=== PATIENT | female | born 1980 | race African-American/Black ===

== ENCOUNTER 2020-04-30 11:01 | Emergency (ER) | payer OTHER, SELFPAY ==
[2020-04-30 11:15] VITALS: BP 153/93; PULSE 80; RESP 20; TEMP 36.6; O2SAT 100
--- NOTE | 2020-04-30 11:28 | ED.GENADULT ---
HPI - General Adult General Chief complaint: Upper Respiratory Infection Stated complaint: sore throat/dry cough Time Seen by Provider: 04/30/20 11:28 Source: patient and RN notes reviewed Mode of arrival: ambulatory Limitations: no limitations History of Present Illness HPI narrative: 39-year-old -[place]ian female presents with complaints of sore throat, hoarseness, and intermittent cough for the past 29 days. Katie reports being diagnosed with COVID-19 on March 31, 2020 and has had a NEGATIVE test since then, started to feel better but continues to have above complaints with increase symptoms over the past 48 hours. Throat lozenges without relief. No high fevers, chills, drooling, neck or throat swelling. Pain is bilateral. Hurts to swallow. Exacerbation factors consist of eating and drinking. No rhinorrhea. Nasal congestion. Intermittent cough without chest congestion. Denies nausea, vomiting, abdominal pain, and diarrhea. Tolerating liquids well. Denies chest pain, dyspnea, difficulty swallowing, jaw pain, dental pain, facial pain, foreign body sensation, and rash. LMP unknown due to Endometrial ablation. Remains active. Some parts of this dictation were generated by voice recognition software and may contain typographical and/or grammatical inaccuracies. Related Data Home Medications Medication Instructions Recorded Confirmed No Home Medications 04/30/20 04/30/20 Allergies Allergy/AdvReac Type Severity Reaction Status Date / Time No Known Allergies Allergy Verified 04/30/20 11:19 Review of Systems Review of Systems: Narrative: CONSTITUTIONAL: Denies fever, chills, sweats. EYES: Denies visual changes, redness, discharge. ENT: Denies rhinorrhea, otalgia. Complains of sore throat, congestion, hoarseness. CARDIOVASCULAR: Denies chest pain, palpitations, edema. RESPIRATORY: Denies dyspnea, wheezing. Complains of intermittent cough. GASTROINTESTINAL: Denies abdominal pain, nausea, vomiting, diarrhea. GENITOURINARY: Denies dysuria, hematuria, abnormal discharge. SKIN: Denies rash or itching. MUSCULOSKELETAL: Denies acute back pain, joint pain, or myalgia. NEUROLOGIC: Denies numbness or focal weakness. PSYCHIATRIC: Denies anxiety or depression. All systems reviewed & are unremarkable except as noted in HPI and below. [facility] Past Medical History Medical History (Updated 04/30/20 @ 19:25 by LIZETH Mendoza) delivery delivered COVID-19 03/31/20 Surgical History Surgical History (Updated 04/30/20 @ 16:39 by LIZETH Mendoza) H/O section X2 History of cholecystectomy History of endometrial ablation Family History Family History Mother Family history of renal failure Father Family history of heart disease in male family member before age 55 Sibling Patient's sister is in good health Patient's brother is in good health Other Diabetes mellitus Family history of cardiovascular disease Hypertension Social History Social History (Updated 04/30/20 @ 16:40 by LIZETH Mendoza) Smoking status: Never smoker Tobacco type: cigarettes Second hand tobacco smoke exposure: No Alcohol intake: never Substance use: never Living arrangements: with family Occupation/Education: occupation Additional occupation/education comments: [employer] Gender identity (if verbalized by the patient): Female Sexual Orientation (if Verbalized by the Patient): Straight or Heterosexual Comments At time of signature, agree with nurse past medical, surgical, social, and family history. There is no relevant family history pertinent to the presenting complaint. Exam Narrative: Exam Narrative: GENERAL: This is a well-nourished, well-developed patient, in no apparent distress. Speaks in full sentences without deficits and ambulates with steady gait without dyspnea. HEAD: normocephalic, at
== END 2020-04-30 11:43 | disposition home or self-care (01) ==
PROVIDERS: Emergency Provider Nurse Practitioner Family
DX: J04.0 Acute laryngitis (principal); J02.0 Streptococcal pharyngitis; Z86.19 Personal history of other infectious and parasitic diseases
CPT/HCPCS: 87880; 99213; G0463

== ENCOUNTER 2020-05-09 14:28 | Emergency (ER) | payer OTHER, SELFPAY ==
--- NOTE | ~2020-05-09 | CT_ITS ---
EXAMINATION: CTA chest PE protocol DATE: 05/09/2020 17:43 INDICATION: Chest pain. Chest heaviness, clamminess. TECHNIQUE: Computed tomography angiography (CTA) of the chest was performed with 200 mL Omnipaque-350 intravenous contrast timed to evaluate the pulmonary arteries. (Repeat imaging was required due to i nsufficient contrast enhancement of the pulmonary arteries on the initial scan.) Coronal maximum inte nsity projection 3D-reconstructions were created by the technologist. Automated exposure control and iterative reconstruction technique were employed. Exam dose: 493.40 mGy-cm total exam DLP. COMPARISON: 05/09/2020 portable AP chest FINDINGS: There is diagnostic contrast enhancement of the pulmonary arteries on the second of the 2 i maging sequences with the second intravenous contrast material administration. There is no evidence o f pulmonary embolism. No thoracic aortic aneurysm or dissection. Normal heart size. No pericardial or pleural effusion. No hilar or mediastinal mass lesion or lymphadenopathy. No pulmonary infiltrate or consolidation or pulmonary mass lesion is detected. Status post cholecystectomy. Small sliding hiatal hernia. Included skeletal structures are unremarkable. IMPRESSION: No evidence of pulmonary aneurysm Reviewed, dictated and finalized at [facility]. Reviewed, dictated and finalized at location A. BLAST EQUIPMENT OPERATOR
--- NOTE | ~2020-05-09 | XR_ITS ---
EXAMINATION: XR chest 1V portable DATE: 05/09/2020 17:10 INDICATION: Chest heaviness and clamminess. COVID in March. TECHNIQUE: frontal view of the chest was obtained. COMPARISON: Chest radiograph dated 01/12/2017 FINDINGS: The lungs remain clear with no focal airspace opacities, pulmonary edema, pleural effusion or pneumot horax. The cardiomediastinal silhouette is normal. Visualized bones and soft tissues are unremarkable . IMPRESSION: 1. Normal chest radiograph. Reviewed, dictated and finalized at location H. IDE POT HARDENER IMPRESSION: 1. Normal chest radiograph.
--- NOTE | 2020-05-09 14:29 | ECG_ITS ---
Measurements Intervals [place] Rate: 91 P: 52 NV: 177 QRS: 41 QRSD: 84 T: 34 QT: 348 QTc: 429 Interpretive Statements SINUS RHYTHM VOLTAGE CRITERIA FOR LVH BASELINE ARTIFACT- V5 BORDERLINE ECG Electronically Signed On 05-09-2020 16:42:30 PUBLIC RELATIONS SENIOR ASSOCIATE by Willy Banks D.O.
[2020-05-09 14:51] VITALS: BP 159/85; PULSE 81; RESP 18; TEMP 37.2; O2SAT 100
[2020-05-09 15:18] LABS: Basophils Absolute Auto 0.1 K/mm3 (0.0-0.1); Basophils Percent Auto 0.8 % (0.2-1.2); Eosinophils Absolute Auto 0.3 K/mm3 (0-0.3); Eosinophils Percent Auto 3.4 % (0-4.4); Hematocrit 36.1 % (37.0-47.0); Hemoglobin 11.7 g/dL (12.0-15.0); Immature Granulocyte Absolute 0.02 K/mm3 (0.00-0.031); Immature Granulocyte Percent A 0.2 % (0-0.5); Lymphocytes Absolute Auto 2.08 K/mm3 (0.9-3.2); Lymphocytes Percent Auto 24.7 % (18.3-44.2); Mean Corpuscular HGB Conc 32.4 g/dl (32-36); Mean Corpuscular Hemoglobin 31.6 pg (26-34); Mean Corpuscular Volume 97.6 fl (80-100); Mean Platelet Volume 9.5 fl (7.4-10.4); Monocytes Absolute Auto 0.7 K/mm3 (0.1-0.6); Monocytes Percent Auto 7.7 % (2.6-8.5); Neutrophils Absolute Auto 5.3 K/mm3 (1.3-6.7); Neutrophils Percent Auto 63.2 % (45.5-73.1); Platelet Count Result 327 k/mm3 (150-375); Red Cell Distribution Width 13.5 % (11.5-14.5); White Blood Count 8.4 K/mm3 (4.5-10.0)
[2020-05-09 15:32] LABS: Anion Gap 11 mmol/L (8-16); Blood Urea Nitrogen 14 mg/dL (7-17); Calcium 9.8 mg/dL (8.4-10.2); Carbon Dioxide 26 mmol/L (22-30); Chloride 104 mmol/L (98-107); Estimated CRCL calculation 96 ml/min; Estimated Glomerular Filt Rate > 60; Glucose 99 mg/dL (65-105); Sodium 141 mmol/L (137-145)
[2020-05-09 15:44] LABS: INR 1.1; Partial Thromboplastin Time 30.3 SECONDS (22.3-36.8); Prothrombin Time 14.7 Seconds (11.1-14.7); Troponin I < 0.012 ng/mL (0.000-0.034)
[2020-05-09 16:42] VITALS: BP 156/90; PULSE 97; RESP 15; O2SAT 99
[2020-05-09 16:47] VITALS: PULSE 86
[2020-05-09] MEDS: ASPIRIN 81 MG CHEWABLE TABLET 324 MG PO (17:00)
--- NOTE | 2020-05-09 17:12 | ED.CHESTPAIN ---
HPI - Chest Pain General Chief Complaint: Chest Pain Stated Complaint: CP Time Seen by Provider: 05/09/20 16:49 History of Present Illness HPI narrative: 39 yo female presents to the ED for chest pain. She has had chest pain since this morning. Feels like pressure. Worse with taking a deep breath. No Sob, cough, fever. She was diagnosed with COVID last month. She was previously treated for HTN, but does not have any BP medications at thsi time. Related Data Home Medications Medication Instructions Recorded Confirmed No Home Medications 04/30/20 04/30/20 Allergies Allergy/AdvReac Type Severity Reaction Status Date / Time No Known Allergies Allergy Verified 04/30/20 11:19 Review of Systems Review of Systems: All systems reviewed & are unremarkable except as noted in HPI and below Constitutional: Constitutional: Denies chills Cardiovascular: Cardiovascular: Reports chest pain Respiratory: Respiratory: Denies cough and Denies dyspnea Gastrointestinal: Gastrointestinal: Denies vomiting Musculoskeletal: Musculoskeletal: Denies back pain Neurologic: Denies numbness and Denies weakness Psychiatric: Psychiatric: Denies anxiety [facility] Past Medical History Medical History delivery delivered COVID-19 03/31/20 Surgical History Surgical History H/O section X2 History of cholecystectomy History of endometrial ablation Family History Family History Mother Family history of renal failure Father Family history of heart disease in male family member before age 55 Sibling Patient's sister is in good health Patient's brother is in good health Other Diabetes mellitus Family history of cardiovascular disease Hypertension Social History Social History Smoking status: Never smoker Tobacco type: cigarettes Second hand tobacco smoke exposure: No Alcohol intake: never Substance use: never 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 Gender identity (if verbalized by the patient): Female Exam Const: General: healthy appearing, no acute distress and alert Orientation/consciousness: patient oriented x3 HENMT: Head: normal to inspection Neck: Neck: normal visual inspection and no lymphadenopathy Chest: Chest palpation & inspection: tenderness Resp: Effort & Inspection: normal respiratory effort Auscultation: clear to auscultation bilaterally, no rales, no rhonchi and no wheezes Cardio: Jugular venous distension: no JVD Rate: regular rate Rhythm: regular rhythm Heart sounds: no murmurs GI: Inspection: non-distended GI Palp: Yes Soft to palpation and No Tenderness to palpation present (GI) Skin: General skin exam: normal color Neuro: General: patient oriented x3 and moves all extremities Speech: normal speech Extrem: General: no edema Psych: Appearance: well kempt Affect: normal affect Course Vital Signs Vital signs: Vital Signs Temperature 37.2 C 05/09/20 14:51 Pulse Rate 81 05/09/20 14:51 Respiratory Rate 18 05/09/20 14:51 Blood Pressure 159/85 H 05/09/20 14:51 Pulse Oximetry 100 05/09/20 14:51 Temperature 37.2 C 05/09/20 14:51 Pulse Rate 98 05/09/20 19:59 Respiratory Rate 18 05/09/20 19:59 Blood Pressure 158/87 H 05/09/20 19:59 Pulse Oximetry 100 05/09/20 19:59 MDM - Chest Pain MDM Narrative Medical decision making narrative: EKG shows LVH, nothing acute. Troponin negative x2. CTA negative for PE or pneumonia. Medical Records Data Attestation: I reviewed the patient's medical records. Lab Data Attestation: I reviewed the patient's lab results. Result diagrams: 05/09/20 15:08 05/09/20 15:08 Labs: Lab Results 05/09/20 05/09/2005/09
[2020-05-09 18:42] LABS: Troponin I < 0.012 ng/mL (0.000-0.034)
[2020-05-09 18:43] VITALS: BP 141/81; PULSE 71; RESP 20; O2SAT 100
[2020-05-09 19:59] VITALS: BP 158/87; PULSE 98; RESP 18; O2SAT 100
== END 2020-05-09 20:00 | disposition home or self-care (01) ==
PROVIDERS: Emergency Provider Emergency Medicine
DX: R07.89 Other chest pain (principal); M79.673 Pain in unspecified foot; Z86.19 Personal history of other infectious and parasitic diseases; R94.31 Abnormal electrocardiogram [ECG] [EKG]
CPT/HCPCS: 36415; 71045; 71275; 80048; 84484; 85025; 85610; 85730; 93005; 99284; A9270; Q9967

== ENCOUNTER 2023-01-13 10:27 | Emergency (ER) | payer OTHER, SELFPAY ==
--- NOTE | ~2023-01-13 | XR_ITS ---
XR chest 2V DATE: 01/13/2023 11:12 INDICATION: Right chest pain radiating to neck since last night TECHNIQUE: PA and lateral chest COMPARISON: 05/09/2020 CT pulmonary scan and portable AP chest FINDINGS: Normal heart size. No hilar or mediastinal enlargement. No pulmonary infiltrate or consolid ation, pleural effusion or pulmonary vascular congestion or pneumothorax is detected. Mild thoracic dextroscoliosis. IMPRESSION: No active cardiopulmonary disease Reviewed, dictated and finalized at location L.
--- NOTE | 2023-01-13 10:28 | ECG_ITS ---
Measurements Intervals [place] Rate: 99 P: 46 AR: 168 QRS: 46 QRSD: 82 T: 10 QT: 329 QTc: 424 Interpretive Statements SINUS RHYTHM VOLTAGE CRITERIA FOR LVH MINIMAL Q WAVES- INFERIOR LEADS BORDERLINE ECG COMPARED TO ECG 05/09/2020 14:49:30 NO SIGNIFICANT CHANGES Electronically Signed On 01-13-2023 10:55:05 CDT by Willy Banks D.O.
[2023-01-13 10:36] VITALS: BP 150/91; PULSE 104; RESP 17; TEMP 36.4; O2SAT 100
[2023-01-13 10:45] VITALS: O2SAT 99
[2023-01-13] MEDS: ASPIRIN 81 MG CHEWABLE TABLET 324 MG PO (11:05)
[2023-01-13 11:13] LABS: Basophils Absolute Auto 0.1 K/mm3 (0.0-0.1); Eosinophils Absolute Auto 0.3 K/mm3 (0-0.3); Eosinophils Percent Auto 4.5 % (0-4.4); Hematocrit 36.2 % (37.0-47.0); Hemoglobin 11.8 g/dL (12.0-15.0); Immature Granulocyte Absolute 0.02 K/mm3 (0.00-0.031); Immature Granulocyte Percent A 0.3 % (0-0.5); Lymphocytes Absolute Auto 1.79 K/mm3 (0.9-3.2); Lymphocytes Percent Auto 30.8 % (18.3-44.2); Mean Corpuscular HGB Conc 32.6 g/dl (32-36); Mean Corpuscular Hemoglobin 32.1 pg (26-34); Mean Corpuscular Volume 98.4 fl (80-100); Mean Platelet Volume 9.7 fl (7.4-10.4); Monocytes Absolute Auto 0.4 K/mm3 (0.1-0.6); Monocytes Percent Auto 7.2 % (2.6-8.5); Neutrophils Absolute Auto 3.3 K/mm3 (1.3-6.7); Neutrophils Percent Auto 56.2 % (45.5-73.1); Platelet Count Result 318 k/mm3 (150-375); Red Blood Count 3.68 M/mm3 (4.2-5.4); Red Cell Distribution Width 13.1 % (11.5-14.5); White Blood Count 5.8 K/mm3 (4.5-10.0)
[2023-01-13 11:23] LABS: Alanine Aminotransferase 23 U/L (6-35); Albumin Level 4.5 g/dL (3.5-5.1); Alkaline Phosphatase 70 U/L (38-126); Anion Gap 6 mmol/L (8-16); Aspartate Amino Transferase 26 U/L (14-36); Bilirubin,Total 0.5 mg/dL (0.2-1.3); Blood Urea Nitrogen 12 mg/dL (7-17); Calcium 9.4 mg/dL (8.4-10.2); Carbon Dioxide 26 mmol/L (22-30); Chloride 106 mmol/L (98-107); Estimated CRCL calculation 114 ml/min; Estimated Glomerular Filt Rate > 60; Glucose 117 mg/dL (65-110); INR 1.1; Lipase 29 U/L (23-300); Partial Thromboplastin Time 27.2 SECONDS (22.3-36.8); Potassium 3.8 mmol/L (3.4-5.0); Prothrombin Time 14.4 Seconds (11.1-14.7); Sodium 138 mmol/L (137-145)
[2023-01-13 11:35] LABS: Troponin I < 0.012 ng/mL (0.000-0.034)
[2023-01-13 12:22] LABS: D Dimer 0.32 ug/mL (<0.48)
--- NOTE | 2023-01-13 12:33 | ED.CHESTPAIN ---
HPI - Chest Pain General Chief Complaint: Chest Pain Stated Complaint: chest pain Time Seen by Provider: 01/13/23 11:02 History of Present Illness HPI narrative: 42-year-old presenting here with right-sided chest pain for the last few days, denies any recent cough, no medical problems. Also has some mild nausea. Related Data Home Medications Medication Instructions Recorded Confirmed No Home Medications 04/30/20 04/30/20 Allergies Allergy/AdvReac Type Severity Reaction Status Date / Time No Known Allergies Allergy Verified 04/30/20 11:19 Review of Systems Review of Systems: CONST: No fever. HEENT: No sore throat C/V: right-sided chest pain RESP: No cough GI: Mild nausea : No dysuria. M/S: No joint pain. SKIN: No rash. NEURO: [No headache or focal numbness or weakness] PSYCH: [No depression] [facility] Past Medical History Medical History delivery delivered COVID-19 03/31/20 Surgical History Surgical History H/O section X2 History of cholecystectomy History of endometrial ablation Family History Family History Mother Family history of renal failure Father Family history of heart disease in male family member before age 55 Sibling Patient's sister is in good health Patient's brother is in good health Other Diabetes mellitus Family history of cardiovascular disease Hypertension Social History Social History Smoking status: Never smoker Tobacco type: cigarettes Second hand tobacco smoke exposure: No Alcohol intake: never Substance use: never Living arrangements: with family Occupation/Education: occupation Additional occupation/education comments: [employer] Gender identity (if verbalized by the patient): Female Sexual Orientation (if Verbalized by the Patient): Straight or Heterosexual Exam Narrative: EXAMINATION OF ORGAN SYSTEMS/BODY AREAS: Constitutional: Vital signs per nursing GENERAL:[No acute distress, non-toxic appearing.] HEAD: Normal with no signs of head trauma. EYES: EOMI, conjunctiva normal ENT: Hearing grossly intact LUNGS: Nonlabored breathing. HEART: [Regular rate and rhythm] ABD: [Soft], [nontender to palpation] EXT: Normal range of motion SKIN: [No rashes or lesions.] NEURO: [Alert and oriented x 3. No gross focal sensory or strength deficits.] PSYCH: Normal affect Course Vital Signs Vital signs: Vital Signs Temperature 97.5 F L 01/13/23 10:36 Pulse Rate 104 H 01/13/23 10:36 Respiratory Rate 17 01/13/23 10:36 Blood Pressure 150/91 H 01/13/23 10:36 Pulse Oximetry 100 01/13/23 10:36 Oxygen Delivery Room Air 01/13/23 10:36 Temperature 98.2 F 01/13/23 13:10 Pulse Rate 74 01/13/23 13:10 Respiratory Rate 20 01/13/23 13:10 Blood Pressure 123/81 01/13/23 13:10 Pulse Oximetry 100 01/13/23 13:10 Oxygen Delivery Room Air 01/13/23 10:45 MDM - Chest Pain MDM Narrative Medical decision making narrative: ED COURSE AND MEDICAL DECISION MAKINyoF presenting with chest pain. EKG done in triage negative for acute ischemic changes. Cardiac workup is initiated. EKG: Performed in triage and interpreted by me. Normal sinus rhythm. Rate 99. Normal axis. MN normal. QRS duration normal. QTc normal. No pathologic Q waves. No ST segment elevation or depression to suggest acute ischemia. No RV strain pattern. HEART score is 0 with no acute ischemic changes on EKG and negative troponin making ACS unlikely. Wells low risk with negative ddimer making PE unlikely. Presentation not consistent with dissection or aneurysm without radiation of pain or pulse deficits. CXR negative for mediastinal widening. No abdominal pain or signs of sepsis that would be co
[2023-01-13 13:10] VITALS: BP 123/81; PULSE 74; RESP 20; TEMP 36.8; O2SAT 100
== END 2023-01-13 13:15 | disposition home or self-care (01) ==
LOC: ANHED 12:38
PROVIDERS: Emergency Provider Emergency Medicine; PCP Family Medicine
DX: R07.89 Other chest pain (principal)
CPT/HCPCS: 36415; 71046; 80053; 83690; 84484; 85025; 85380; 85610; 85730; 93005; 99284; A9270

== ENCOUNTER 2023-05-30 15:23 | Emergency (ER) | payer OTHER, SELFPAY ==
--- NOTE | ~2023-05-30 | XR_ITS ---
EXAMINATION: XR chest 1V portable DATE: 05/30/2023 16:21 INDICATION: Palpitations. Shortness of breath. TECHNIQUE: A single frontal view of the chest was obtained. COMPARISON: Chest 2 views 01/13/2023, chest CT 05/09/2020 FINDINGS: There is no pneumonia, pleural effusion, or pneumothorax. Cardiomegaly is noted. IMPRESSION: 1. Cardiomegaly. Reviewed, dictated and finalized at location E. PURPOSE CLERK IMPRESSION: 1. Cardiomegaly.
[2023-05-30 15:26] VITALS: BP 160/106; PULSE 168; RESP 18; TEMP 36.1; O2SAT 100
--- NOTE | 2023-05-30 15:30 | ECG_ITS ---
Measurements Intervals [place] Rate: 160 P: [place]: 0 QRS: 58 QRSD: 81 T: -44 QT: 259 QTc: 422 Interpretive Statements SUPRAVENTRICULAR TACHYCARDIA NONSPECIFIC ST AND T-WAVE ABNORMALITY ABNORMAL ECG COMPARED TO ECG 01/13/2023 10:36:02 SUPRAVENTRICULAR TACHYCARDIA REPLACES SINUS RHYTHM Electronically Signed On 05-30-2023 16:30:50 ASSURANCE MANAGER INSURANCE by Abhi Alejo M.D.
[2023-05-30] MEDS: SODIUM CHLORIDE 0.9% IV 1,000 ML 999 ML IV CONT (16:01)
[2023-05-30] MEDS: ASPIRIN 81 MG CHEWABLE TABLET 324 MG PO (16:01)
[2023-05-30 16:02] VITALS: PULSE 103; O2SAT 100
[2023-05-30 16:04] VITALS: BP 140/84; PULSE 100; RESP 20; O2SAT 100
[2023-05-30 16:15] LABS: Basophils Absolute Auto 0.1 K/mm3 (0.0-0.1); Basophils Percent Auto 0.9 % (0.2-1.2); Eosinophils Absolute Auto 0.3 K/mm3 (0-0.3); Eosinophils Percent Auto 3.3 % (0-4.4); Hematocrit 37.3 % (37.0-47.0); Hemoglobin 12.1 g/dL (12.0-15.0); Immature Granulocyte Absolute 0.03 K/mm3 (0.00-0.031); Immature Granulocyte Percent A 0.3 % (0-0.5); Lymphocytes Absolute Auto 3.54 K/mm3 (0.9-3.2); Mean Corpuscular HGB Conc 32.4 g/dl (32-36); Mean Corpuscular Hemoglobin 31.3 pg (26-34); Mean Corpuscular Volume 96.6 fl (80-100); Mean Platelet Volume 10.1 fl (7.4-10.4); Monocytes Absolute Auto 0.6 K/mm3 (0.1-0.6); Monocytes Percent Auto 6.1 % (2.6-8.5); Neutrophils Percent Auto 52.4 % (45.5-73.1); Platelet Count Result 388 k/mm3 (150-375); Red Blood Count 3.86 M/mm3 (4.2-5.4); Red Cell Distribution Width 13.2 % (11.5-14.5); White Blood Count 9.6 K/mm3 (4.5-10.0)
[2023-05-30 16:25] LABS: Alanine Aminotransferase 21 U/L (6-35); Albumin Level 4.5 g/dL (3.5-5.1); Alkaline Phosphatase 88 U/L (38-126); Anion Gap 15 mmol/L (8-16); Aspartate Amino Transferase 29 U/L (14-36); Bilirubin,Total 0.5 mg/dL (0.2-1.3); Blood Urea Nitrogen 16 mg/dL (7-17); Calcium 9.8 mg/dL (8.4-10.2); Carbon Dioxide 19 mmol/L (22-30); Chloride 105 mmol/L (98-107); Estimated Glomerular Filt Rate > 60; Glucose 128 mg/dL (65-110); Lipase 51 U/L (23-300); Potassium 3.6 mmol/L (3.4-5.0); Sodium 139 mmol/L (137-145)
[2023-05-30 16:31] LABS: Partial Thromboplastin Time 30.4 SECONDS (22.3-36.8); Prothrombin Time 13.8 Seconds (11.1-14.7)
[2023-05-30 16:36] LABS: Troponin I 0.025 ng/mL (0.000-0.034)
--- NOTE | 2023-05-30 16:53 | ED.GENADULT ---
HPI - General Adult General Chief complaint: Shortness of Breath/Dyspnea Stated complaint: Shortness of breath Time Seen by Provider: 05/30/23 15:55 History of Present Illness HPI narrative: Patient is a 42-year-old female who presents to the ER with shortness of breath and racing of the heart. Ongoing over the last hour. Sudden onset. Feels mildly anxious. Reports she has had this in the past has been recurrent but it typically resolves on its own. Denies any drug use. She has not been evaluated by a joiners supervisor previously. 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 No new lower extremity edema. No alleviating factors. Related Data Allergies Allergy/AdvReac Type Severity Reaction Status Date / Time No Known Allergies Allergy Verified 05/30/23 16:05 Review of Systems Review of Systems: All systems reviewed & are unremarkable except as noted in HPI and below Constitutional: Constitutional: Denies chills, Denies fatigue and Denies fever(s) ENT: Denies nasal congestion and Denies sore throat Cardiovascular: Cardiovascular: Denies chest pain, Reports rapid heart rate and Denies radiating jaw, neck or arm pain Respiratory: Respiratory: Denies cough, Reports dyspnea and Denies wheezing Gastrointestinal: Gastrointestinal: Denies abdominal pain, Denies nausea and Denies vomiting Musculoskeletal: Musculoskeletal: Denies arthralgias, Denies joint swelling and Denies muscle cramps Neurologic: Reports system reviewed and no additional complaints, except as documented Psychiatric: Psychiatric: Reports anxiety PMFSH Past Medical History Medical History delivery delivered COVID-19 03/31/20 Surgical History Surgical History H/O section X2 History of cholecystectomy History of endometrial ablation Family History Family History Mother Family history of renal failure Father Family history of heart disease in male family member before age 55 Sibling Patient's sister is in good health Patient's brother is in good health Other Diabetes mellitus Family history of cardiovascular disease Hypertension Social History Social History Smoking status: Never smoker Tobacco type: cigarettes Second hand tobacco smoke exposure: No Alcohol intake: never Substance use: never Living arrangements: with family Occupation/Education: occupation Additional occupation/education comments: [employer] Gender identity (if verbalized by the patient): Female Sexual Orientation (if Verbalized by the Patient): Straight or Heterosexual Exam Narrative: GENERAL: Anxious-appearing, well-nourished, and in no acute distress. HEAD: Normocephalic, atraumatic. EYES: PERRL and EOMI. ENT: Mucous membranes moist. CHEST: Clear to auscultation. No respiratory distress. HEART: tachycardic and regular. Normal peripheral pulses. ABDOMEN: Soft, nontender, nondistended. EXTREMITIES: Normal range of motion. No edema. SKIN: Warm, dry, no rash. NEURO: Alert and oriented x3. PSYCH: Normal mood and affect. Course Course Emergency Course: Patient converted to normal sinus rhythm that is no longer tachycardic after we were preparing to administer adenosine. Patient has remained in a sinus rhythm in the 80s swelling the ER. She has no chest discomfort or shortness of breath. Blood pressure stable concurrently 133/78. Discussed case with Cardiology, Dr. Lazcano. Recommend starting Toprol-XL 25 mg daily in the follow-up in the office for an outpatient consult and echocardiogram. Patient does have new cardiomegaly on her x-ray. Patient aware of diagnosis and treatment plan. Discharged. Vital Signs Vital signs: Vital Signs Temperature 97.0 F L /04
[2023-05-30 17:31] VITALS: BP 133/78; PULSE 86; PULSE 94; RESP 20; O2SAT 100
[2023-05-30] MEDS: METOPROLOL SUCCINATE EXT REL 25 MG TABCR PO (17:31)
[2023-05-30 17:58] VITALS: BP 133/84; PULSE 83; RESP 16; O2SAT 99
== END 2023-05-30 18:00 | disposition home or self-care (01) ==
PROVIDERS: Emergency Provider Emergency Medicine; PCP Family Medicine
DX: I47.10 Supraventricular tachycardia, unspecified (principal); I51.7 Cardiomegaly; Z86.16 Personal history of COVID-19; Z90.49 Acquired absence of other specified parts of digestive tract
CPT/HCPCS: 36415; 71045; 80053; 83690; 84443; 84484; 85025; 85610; 85730; 93005; 96360; 99284; A9270; J7030

== ENCOUNTER 2023-07-30 14:23 | Emergency (ER) | payer OTHER, SELFPAY ==
--- NOTE | ~2023-07-30 | CT_ITS ---
EXAMINATION: CTA chest PE protocol DATE: 07/30/2023 16:46 INDICATION: PE TECHNIQUE: Computed tomography angiography (CTA) of the chest was performed with 100 mL Omnipaque-350 intravenous contrast timed to evaluate the pulmonary arteries. Coronal maximum intensity projection 3D-reconstructions were created by the technologist. The dose-length product (DLP) was 553.63 mGy-cm. Automated exposure control and iterative reconstruction technique were employed. COMPARISON: X-ray chest, same date; CTPA 05/09/2020. FINDINGS: Lung parenchyma and airways: Low lung volumes, dependent atelectasis, otherwise clear. Pleura: Unremarkable. Thoracic inlet, axillae and chest wall: Unremarkable. Thoracic aorta: Normal. Mediastinum: Normal. Heart and pericardium: Cardiomegaly. Coronary artery calcifications: Absent. Upper abdomen: Status post cholecystectomy. Bones: No acute osseous finding. Pulmonary arteries: Study quality: Study limited by beam hardening, motion, and quantum mottle, which limits evaluation of subsegmental arteries. No central or segmental pulmonary emboli detected. IMPRESSION: Limited evaluation of subsegmental pulmonary arteries. No CT evidence of acute central or segmental p ulmonary embolus. No acute process detected in the chest. Reviewed, dictated and finalized at location K. ROL SYSTEM MANAGER IMPRESSION: Limited evaluation of subsegmental pulmonary arteries. No CT evidence of acute central or segmental pulmonary embolus. No acute process detected in the chest.
--- NOTE | ~2023-07-30 | XR_ITS ---
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 RESULT: Lines, tubes, and devices: None. Lungs and pleura: Clear. Cardiomediastinal silhouette: Stable. Other: No acute osseous or upper abdominal finding. IMPRESSION: No acute cardiopulmonary process. Reviewed, dictated and finalized at location K. ION ARTIST
[2023-07-30 14:25] VITALS: BP 143/69; PULSE 76; RESP 16; TEMP 36.7; O2SAT 100
--- NOTE | 2023-07-30 14:39 | ECG_ITS ---
Measurements Intervals [place] Rate: 70 P: 42 MD: 190 QRS: 45 QRSD: 93 T: 29 QT: 435 QTc: 472 Interpretive Statements SINUS RHYTHM MINIMAL VOLTAGE CRITERIA FOR LVH, CONSIDER NORMAL VARIANT Electronically Signed On 07-31-2023 11:34:00 COMPONENT ENGINEER by Sinan Walker M.D.
[2023-07-30 14:57] VITALS: BP 161/71; PULSE 71; RESP 20; TEMP 36.6; O2SAT 100
--- NOTE | 2023-07-30 15:00 | ED.SOB ---
HPI - SOB/Dyspnea General Chief Complaint: Shortness of Breath/Dyspnea Stated Complaint: diff breathing Time Seen by Provider: 07/30/23 14:52 History of Present Illness HPI Narrative: Patient is a 43-year-old female with history of SVT here with shortness of breath and palpitations. She states that just prior to arrival she was driving in her vehicle with her children when she started experiencing palpitations and shortness of breath which feels similar to when she has had SVT in the past. She notes that her watch told her that her heart rate went up to around 109, heart rate is improved here. She notes that in her episodes of SVT in the past her heart rate has gone up quite a bit higher than that. She does note that she has had a cough over the last few days. No fever or chills. No associated chest pain. No history of PE or DVT. She does note that she has been having chronic left leg pain due to a kong's cyst since the fall, is scheduled to get it drained sometime soon. Denies worsening of swelling. Related Data Allergies Allergy/AdvReac Type Severity Reaction Status Date / Time No Known Allergies Allergy Verified 07/30/23 14:56 Review of Systems Review of Systems: All systems reviewed & are unremarkable except as noted in HPI and below PMFSH Past Medical History Medical History delivery delivered COVID-19 03/31/20 Surgical History Surgical History H/O section X2 History of cholecystectomy History of endometrial ablation Family History Family History Mother Family history of renal failure Father Family history of heart disease in male family member before age 55 Sibling Patient's sister is in good health Patient's brother is in good health Other Diabetes mellitus Family history of cardiovascular disease Hypertension Social History Social History Smoking status: Never smoker Tobacco type: cigarettes Second hand tobacco smoke exposure: No Alcohol intake: never Substance use: never Living arrangements: with family 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 HEAD: Normocephalic, atraumatic. EYES: PERRLA and EOMI. ENT: Nares clear. Mucous membranes moist. NECK: Supple. CHEST: Clear to auscultation. Tachypneic. HEART: Regular rate and rhythm. Normal peripheral pulses. ABDOMEN: Soft, nontender, nondistended. EXTREMITIES: Normal range of motion. No edema. SKIN: Warm, dry, no rash. NEURO: No focal deficits. Alert and oriented x3. PSYCH: Normal mood and affect. Course Course Emergency Course: Chart review performed. Patient here with difficulty breathing, notes history of SVT. Triage vitals grossly normal. Patient seen evaluated, nontoxic appearing, she does have some mild tachypnea, heart rate and saturations normal. Will do cardiac workup, covid/influenza/RSV swab, screening d-dimer, low risk PE. Lab work reviewed, CBC grossly normal, D-dimer mildly elevated, will do CTA PE study. Electrolytes normal, normal renal function. Normal LFTs. Initial troponin negative. COVID, influenza, RSV negative. CT negative. Will reevaluate. Patient re-evaluated, feels much better, no longer having any palpitations or shortness of breath. Requesting to be discharged home which I feel is appropriate given negative workup in the department. Anticipate she most likely had an episode of SVT wheel driving and then it resolved prior to arrival to the emergency department. Advised to follow-u
[2023-07-30 15:03] VITALS: PULSE 73
[2023-07-30 15:20] LABS: Basophils Absolute Auto 0.1 K/mm3 (0.0-0.1); Eosinophils Absolute Auto 0.3 K/mm3 (0-0.3); Eosinophils Percent Auto 3.5 % (0-4.4); Hematocrit 34.6 % (37.0-47.0); Hemoglobin 11.3 g/dL (12.0-15.0); Immature Granulocyte Absolute 0.01 K/mm3 (0.00-0.031); Immature Granulocyte Percent A 0.1 % (0-0.5); Lymphocytes Absolute Auto 2.81 K/mm3 (0.9-3.2); Lymphocytes Percent Auto 39.4 % (18.3-44.2); Mean Corpuscular HGB Conc 32.7 g/dl (32-36); Mean Corpuscular Hemoglobin 31.3 pg (26-34); Mean Corpuscular Volume 95.8 fl (80-100); Mean Platelet Volume 9.4 fl (7.4-10.4); Monocytes Absolute Auto 0.7 K/mm3 (0.1-0.6); Monocytes Percent Auto 9.1 % (2.6-8.5); Neutrophils Absolute Auto 3.4 K/mm3 (1.3-6.7); Neutrophils Percent Auto 46.9 % (45.5-73.1); Platelet Count Result 328 k/mm3 (150-375); Red Blood Count 3.61 M/mm3 (4.2-5.4); Red Cell Distribution Width 13.1 % (11.5-14.5); White Blood Count 7.1 K/mm3 (4.5-10.0)
[2023-07-30 15:38] LABS: Alanine Aminotransferase 21 U/L (6-35); Albumin Level 4.5 g/dL (3.5-5.1); Alkaline Phosphatase 100 U/L (38-126); Anion Gap 11 mmol/L (8-16); Aspartate Amino Transferase 28 U/L (14-36); Bilirubin,Total 0.6 mg/dL (0.2-1.3); Blood Urea Nitrogen 14 mg/dL (7-17); Calcium 9.6 mg/dL (8.4-10.2); Carbon Dioxide 19 mmol/L (22-30); Chloride 109 mmol/L (98-107); Estimated CRCL calculation 113 ml/min; Estimated Glomerular Filt Rate > 60; Glucose 92 mg/dL (65-110); Potassium 3.4 mmol/L (3.4-5.0); Sodium 139 mmol/L (137-145)
[2023-07-30 15:43] LABS: Magnesium 2.2 mg/dL (1.6-2.3)
[2023-07-30 15:46] VITALS: BP 139/91; PULSE 63; RESP 18; O2SAT 100
[2023-07-30 15:54] LABS: Troponin I < 0.012 ng/mL (0.000-0.034)
[2023-07-30 16:05] LABS: D Dimer 0.69 ug/mL (<0.48)
[2023-07-30 16:09] LABS: Influenza A QL RT-PCR Negative (Negative); Influenza B QL RT-PCR Negative (Negative); RSV RNA, RT-PCR Negative (Negative); SARS-CoV-2 RNA PCR Negative (Negative)
[2023-07-30 16:53] VITALS: BP 137/72; PULSE 62; RESP 21; O2SAT 100
[2023-07-30 18:12] VITALS: BP 130/78; PULSE 64; RESP 20; TEMP 36.6; O2SAT 98
== END 2023-07-30 18:14 | disposition home or self-care (01) ==
PROVIDERS: Emergency Medicine; Emergency Provider Student in an Organized Health Care Education/Training Program
DX: R06.02 Shortness of breath (principal); R00.2 Palpitations; Z20.822 Contact with and (suspected) exposure to COVID-19; Z86.16 Personal history of COVID-19; Z90.49 Acquired absence of other specified parts of digestive tract
CPT/HCPCS: 36415; 71046; 71275; 80053; 83735; 84484; 85025; 85380; 87637; 93005; 99284; Q9967

== ENCOUNTER 2023-10-04 08:42 | Emergency (ER) | payer OTHER, SELFPAY ==
[2023-10-04 08:49] VITALS: BP 131/75; PULSE 63; RESP 16; TEMP 36.4; O2SAT 100
--- NOTE | 2023-10-04 09:22 | ED.URI ---
HPI - URI/Sore Throat General Chief Complaint: Upper Respiratory Infection Stated Complaint: Sinus Infection Symptoms Time Seen by Provider: 10/04/23 09:20 Source: patient, RN notes reviewed and old records reviewed Mode of arrival: ambulatory Limitations: no limitations History of Present Illness HPI Narrative: 43 year old female who presents to [facility] care with complaints of 3 day history of rhinorrhea, nasal congestion, sinus pain,left frontal headache and low grade temperature highest noted 99.4F and also some left ear pressure. Patient has squeaky voice denies any sore throat or acute cough. Patient has been taking Mucinex for her symptoms. MD elicited complaint: rhinorrhea, nasal congestion, sinus pain and other (headache) Pertinent past history: seasonal allergies Onset (ago): day(s) (day 3 of symptoms) Severity: moderate Pain scale (0-10): 6 Able to tolerate fluids by mouth: Yes Treatments prior to arrival: other (Mucinex) Related Data Allergies Allergy/AdvReac Type Severity Reaction Status Date / Time No Known Allergies Allergy Verified 10/04/23 09:13 Review of Systems Review of Systems: CONSTITUTIONAL: Reports malaise, chills, sweats, or fever. EYES: Denies visual changes, redness, or discharge. ENT: Reports rhinorrhea, congestion, left-sided sinus pain, left otalgia and no sore throat. CARDIOVASCULAR: Denies chest pain, palpitations, or edema. RESPIRATORY: Reports occasional dry cough.? Denies dyspnea. GASTROINTESTINAL: Denies abdominal pain, nausea, vomiting, diarrhea SKIN: Denies rash or itching. MUSCULOSKELETAL: Denies myalgia. NEUROLOGIC: reports left temporal headache. All systems reviewed & are unremarkable except as noted in HPI and below PMFSH Past Medical History Medical History (Updated 10/05/23 @ 15:53 by Mary Ellen Xie NP) delivery delivered COVID-19 03/31/20 SVT (supraventricular tachycardia) Surgical History Surgical History (Updated 10/05/23 @ 15:52 by Mary Ellen Xie NP) H/O section X2 H/O: hysterectomy History of cholecystectomy History of endometrial ablation Family History Family History Mother Family history of renal failure Father Family history of heart disease in male family member before age 55 Sibling Patient's sister is in good health Patient's brother is in good health Other Diabetes mellitus Family history of cardiovascular disease Hypertension Social History Social History Smoking status: Never smoker Tobacco type: cigarettes Second hand tobacco smoke exposure: No Alcohol intake: never Substance use: never Living arrangements: with family 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 There is no relevant family history pertinent to the presenting complaint Exam Narrative: GENERAL: Well-appearing, well-nourished, and in no acute distress. HEAD: Normocephalic EYES: PERRLA, conjunctivae clear ENT: Nares clear, turbinates edematous and erythematous, greenish discharge, sinus pressure and left temporal headache Mucous membranes moist. TM pearly jain with dull light reflex bilaterally; no tragal tenderness. Oropharynx erythematous without lesions. Tonsils not enlarged and without exudate, no drooling, positive for hoarseness, no trismus, uvula midline.post nasal drainage noted NECK: Supple. No lymphadenopathy CHEST: Clear to auscultation, breath sounds equal. No wheezing, rhonchi, rales, or stridor. No respiratory distress, speaks in full sentences.occasional dry cough HEART: Regular rate and rhythm
== END 2023-10-04 09:55 | disposition home or self-care (01) ==
PROVIDERS: Emergency Provider Registered Nurse; PCP Nurse Practitioner Family
DX: J32.9 Chronic sinusitis, unspecified (principal); Z86.16 Personal history of COVID-19
CPT/HCPCS: 99213; G0463

== ENCOUNTER 2025-04-28 19:51 | Emergency (ER) | payer OTHER, SELFPAY ==
[2025-04-28 20:04] VITALS: BP 175/69; PULSE 63; RESP 18; TEMP 36.3; O2SAT 100
[2025-04-28 21:37] LABS: Hematocrit 34.9 % (37.0-47.0); Hemoglobin 11.5 g/dL (12.0-15.0); Immature Granulocyte Percent A 0.3 % (0-0.5); Lymphocytes Absolute Auto 2.12 K/mm3 (0.9-3.2); Mean Corpuscular HGB Conc 33.0 g/dl (32-36); Mean Corpuscular Hemoglobin 32.4 pg (26-34); Mean Corpuscular Volume 98.3 fl (80-100); Nucleated Red Blood Cells Absolute Auto 0.000 K/mm3 (0.0-0.012); Nucleated Red Blood Cells Perc 0.0 % (0.0-0.2); Platelet Count Result 382 k/mm3 (150-375); Red Blood Count 3.55 M/mm3 (4.2-5.4); White Blood Count 7.1 K/mm3 (4.5-10.0)
[2025-04-28 21:48] LABS: INR 1.1; Prothrombin Time 14.5 Seconds (11.1-14.7)
[2025-04-28 21:49] LABS: Partial Thromboplastin Time 29.2 Seconds (22.3-36.8)
[2025-04-28 21:54] LABS: Anion Gap 9 mmol/L (4-12); Blood Urea Nitrogen 14 mg/dL (7-17); Calcium 9.1 mg/dL (8.4-10.2); Carbon Dioxide 27 mmol/L (22-30); Chloride 104 mmol/L (98-107); Estimated CRCL calculation 102 ml/min; Estimated Glomerular Filt Rate > 60; Glucose 101 mg/dL (65-110); Potassium 3.5 mmol/L (3.4-5.0); Sodium 140 mmol/L (137-145)
--- NOTE | 2025-04-28 22:06 | ED_ITS ---
HPI - Extremity Problem General Chief complaint: Extremity Problem,Nontraumatic Stated complaint: L LEG PAIN/SWELLING Time Seen by Provider: 04/28/25 21:12 History of Present Illness HPI Narrative: 44-year-old female presenting with mild left leg swelling. Called her PCP and she was referred to the ED for rule out DVT. Patient has no history of thromboembolic disease or DVT. No traumatic injuries. Patient is on her feet for work and knows that she was some swelling in her left leg in the calf region. No traumatic injuries. No blood thinner use. No recent surgeries. She was otherwise in her normal state of health. Did not take anything for symptoms. Related Data Allergies Allergy/AdvReac Type Severity Reaction Status Date / Time No Known Allergies Allergy Verified 04/28/25 19:52 Review of Systems 2 Review of Systems: As reviewed above in HPI PMFSH Past Medical History Medical History SVT (supraventricular tachycardia) COVID-19 03/31/20 delivery delivered Surgical History Surgical History H/O: hysterectomy History of cholecystectomy History of endometrial ablation H/O section X2 Family History Family History Mother Family history of renal failure Father Family history of heart disease in male family member before age 55 Sibling Patient's sister is in good health Patient's brother is in good health Other Diabetes mellitus Family history of cardiovascular disease Hypertension Social History Social History Smoking status: Never smoker Tobacco type: cigarettes Second hand tobacco smoke exposure: No Alcohol intake: never Substance use: never Living arrangements: with family 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 Mucous membranes moist. NECK: Supple. CHEST: [Clear to auscultation. No respiratory distress.] HEART: [Regular rate and rhythm]. No murmur heard. [Normal peripheral pulses.] ABDOMEN: [Soft, nondistended], [nontender], [No rigidity or guarding] EXTREMITIES: Normal range of motion. Extremities are symmetric in size, no calf fullness but some mild reproducible calf tenderness to palpation left-sided distally. No superficial thrombophlebitis or overlying skin changes deformity or rash. 2+ dorsalis pedis pulse without any edema. Ambulatory without difficulty. Plantar flexion elicits some more discomfort. SKIN: Warm, dry, no rash. NEURO: [No focal deficits]. Alert and oriented [x3.] PSYCH: [Normal mood and affect.] Course Vital Signs Vital signs: Vital Signs Temperature 36.3 C L 04/28/25 20:04 Pulse Rate 63 04/28/25 20:04 Respiratory Rate 18 04/28/25 20:04 Blood Pressure 175/69 H 04/28/25 20:04 Pulse Oximetry 100 04/28/25 20:04 Temperature 36.3 C L 04/28/25 20:04 Pulse Rate 63 04/28/25 20:04 Respiratory Rate 18 04/28/25 20:04 Blood Pressure 175/69 H 04/28/25 20:04 Pulse Oximetry 100 04/28/25 20:04 MDM - Extremity (Nontraumatic) MDM Narrative Medical decision making narrative: 44-year-old female presenting with mild left leg swelling. Called her PCP and she was referred to the ED for rule out DVT. Patient has no history of thromboembolic disease or DVT. No traumatic injuries. Patient is on her feet for work and knows that she was some swelling in her left leg in the calf region. No traumatic injuries. No blood thinner use. No recent surgeries. She was otherwise in her normal state of health. Did not take anything for symptoms. Normal range of motion. Extremities are symmetric in size, no calf fullness but some mild reproducible calf tenderness to palpation left-sided distally. No superficial thrombophlebitis or overlying skin changes deformity or rash. 2+ dorsalis pedis pulse without any edema. Ambulatory without difficulty. Plantar flexion elicits some more discomfort. Mild hypertension but no tachycardia, fever, hypoxemia. Low risk for DVT. Ultrasound unavailable at this hour. Will rule out with basic laboratory studies and D-dimer and if positive patient will be referred for outpatient ultrasonography. Workup shows no leukocytosis or significant anemia worse than baseline. Normal electrolytes and coag panel. Negative D-dimer. Patient is safe for discharge with PCP follow-up. Lab Data 04/28/25 21:30 04/28/25 21:30 Labs: Lab Results 04/28/25 Range/Units 21:30 WBC 7.1 (4.5-10.0) K/mm3 RBC 3.55 L (4.2-5.4) M/mm3 Hgb 11.5 L (12.0-15.0) g/dL Hct 34.9 L (37.0-47.0) % MCV 98.3 (80-100) fl MCH 32.4 (26-34) pg MCHC 33.0 (32-36) g/dl RDW 13.0 (11.5-14.5) % Plt Count 382 H (150-375) k/mm3 MPV 9.0 (7.4-10.4) fl Immature Gran % (Auto) 0.3 (0-0.5) % Neut % (Auto) 52.0 (45.5-73.1) % Lymph % (Auto) 29.9 (18.3-44.2) % [place] % (Auto) 6.2 (2.6-8.5) % Eos % (Auto) 10.6 H (0-4.4) % Baso % (Auto) 1.0 (0.2-1.2) % Lymph # (Auto) 2.12 (0.9-3.2) K/mm3 [place] # (Auto) 0.4 (0.1-0.6) K/mm3 Eos # (Auto) 0.8 H (0-0.3) K/mm3 Baso # (Auto) 0.1 (0.0-0.1) K/mm3 Abs Immat Gran (auto) 0.02 (0.00-0.031) K/mm3 Absolute Neuts (auto) 3.7 (1.3-6.7) K/mm3 Absolute Nucleated RBC 0.000 (0.0-0.012) K/mm3 Nucleated RBC % 0.0 (0.0-0.2) % PT 14.5 (11.1-14.7) Seconds INR 1.1 APTT 29.2 (22.3-36.8) Seconds D-Dimer < 0.27 (<0.48) ug/mL Sodium 140 (137-145) mmol/L Potassium 3.5 (3.4-5.0) mmol/L Chloride 104 (98-107) mmol/L Carbon Dioxide 27 (22-30) mmol/L Anion Gap 9 (4-12) mmol/L BUN 14 (7-17) mg/dL Creatinine 0.71 (0.7-1.0) mg/dL Estim Creat Clear Calc 102 ml/min Estimated GFR > 60 (59 - ) Glucose 101 (65-110) mg/dL Calcium 9.1 (8.4-10.2) mg/dL Discharge Plan Discharge Clinical Impression: Pain of left calf Patient Disposition: Home Condition: Stable Instructions: Antibiotic Form, Leg Pain (ED) Additional Instructions: Laboratory studies are normal. No signs of a blood clot in your D-dimer was undetectable. No need for ultrasonography. Follow-up with your primary care provider. Take Tylenol, ibuprofen and wear compression stockings if this helps. Return with any emergencies. Patient Language: Burkinan Prescriptions: No Action fluticasone propionate [Allergy Relief (fluticasone)] 50 mcg/actuation spray,suspension 1 spray NASAL BID Qty: 16 0RF Rx Instructions: administer into each nostril loratadine [Claritin] 10 mg tablet 10 mg PO DAILY 60 Days Qty: 60 0RF amoxicillin 875 mg tablet 875 mg PO Q12H Qty: 20 0RF Rx Instructions: take all of prescription metoprolol succinate [Toprol XL] 25 mg tablet extended release 24 hr 25 mg PO DAILY Qty: 20 0RF Follow-up/Referrals: UNKNOWN,DOCTOR [Primary Care Provider] Time of Disposition: 22:10
== END 2025-04-28 22:14 | disposition home or self-care (01) ==
PROVIDERS: Emergency Provider Student in an Organized Health Care Education/Training Program
DX: M79.662 Pain in left lower leg (principal); Z86.16 Personal history of COVID-19; Z90.710 Acquired absence of both cervix and uterus; Z90.49 Acquired absence of other specified parts of digestive tract
CPT/HCPCS: 36415; 80048; 85025; 85380; 85610; 85730; 99283